=== PATIENT | male | born 1955 | race Caucasian/White ===

== ENCOUNTER 2023-09-27 18:59 | Inpatient (IN) ==
--- NOTE | 2023-09-27 19:22 | Emergency Department Note ---
Impression & Plan Stroke-like symptoms ED Provider Note HISTORY OF PRESENT ILLNESS: Patient is a 68-year-old male presenting with nausea and vomiting. Patient is concerned that he is dehydrated. He reports that last night his was up all night vomiting and having diarrhea and he was helping care for her. He reports that he woke up and has had multiple episodes of nausea and vomiting. Patient is from out of [facility] and normally resides in [place], but is in town helping his daughter and son-in-law move. He was last seen normal and speaking normally at 2 AM. However, went and assessed the patient at 11 AM this morning and found him to have garbled speech and be confused with difficulties with fine motor skills with his right side. She grew concerned given his symptoms and continued vomiting, prompting them to present to the emergency department. He denies any chest pain or shortness of breath. Currently complaining of nausea. Denies any abdominal pain. Patient is not on any anticoagulation or antiplatelet therapy. ROS: as above PHYSICAL EXAM: Constitutional: Patient appears in no acute distress. HENT: Head: Normocephalic and atraumatic. Eyes: EOMI, PERRL Mouth/Throat: Mucous membranes moist. Neck: Trachea midline. Neck supple. Cardiovascular: RRR, No murmurs, rubs or gallops. Intact distal pulses. Pulmonary/Chest: No respiratory distress. Breath sounds clear and equal bilaterally. No wheezes or rales. Abdominal: Abdomen soft, no tenderness, rebound or guarding. Musculoskeletal: No edema, tenderness or deformity noted. Skin: Warm and dry. No rash, erythema, pallor or cyanosis Psychiatric: Appropriate mood and affect for situation. Neurological: Alert and keenly responsive. Noted to have right lower facial droop. Able to raise eyebrows equally well. Significant slurred speech and garbled speech. Strength 5 out of 5 in bilateral upper and lower extremities. Sensation intact to light touch at the bilateral upper and lower extremities. P atient has difficulties with [id number] with the right upper extremity. Noted to have drift in the right upper extremity when held against gravity. Also noting to have drift in the right lower extremity. MDM: - Vitals signs stable. - History obtained via patient and patient's . History as above. - Chronic conditions affecting care: HTN - Differential diagnoses include, but are not limited to: dehydration; electrolyte abnormality; ACS; viral syndrome; CVA; TIA; intracranial hemorrhage - Order placed for continuous cardiac monitoring. At this time, monitor showed rate of 90 bpm with normal sinus rhythm, per my interpretation. - On arrival to examination room from triage, nursing came to alert me that the patient is having some significant this metric with his right upper extremity and slurred speech. On my assessment, the patient does have garbled speech and dysmetria with his right upper extremity and drift in his right upper extremity. He is outside of the window for TNK, given his last known well was 2 AM on 09/27/2023. However, he was stroke alerted given his continued symptoms and within window for thrombectomy. - External medical records reviewed. - EKG interpreted by myself showed normal sinus rhythm. Rate 86 bpm. QT 368. No acute ischemic changes. - Laboratory workup interpreted by myself showed normal WBC; normal PT/INR; stable electrolytes; hyperglycemia (glucose 171); normal troponin - UA negative for infection. Noted to have ketonuria. - Viral respiratory panel negative - CT head wo contrast negative for acute intracranial pathology - CTA head/neck negative for acute pathology, per radiology. - Discussed results with telestroke at [facility], Dr. Alvarez at 20:00. He recommended a aspirin and admission for further stroke workup. Did not recommend starting plavix, given concern for larger stroke. No need for transfer for thrombectomy at this time. - Patient given 325 mg PO aspirin in ER. - MRI brain wo contrast ordered. - Discussion was had with disease case manager about patient's case and need for admission - Hospitalist consulted for admission - [facility] ASSESSMENT AND PLAN: Diagnosis: Stroke-like symptoms Plan: Admit Past Med/Surg History Problem List (Updated 09/27/23 @ 21:41 by Ana Paula oCsby MD) Stroke-like symptoms (Acute) Social History Smoking Status: Never smoker Feels Safe at Home: Yes Allergies Allergies Allergy/AdvReac Type Severity Reaction Status Date / Time No Known Allergies Allergy Verified 09/27/23 21:09 Home Meds Home Medications Medication Instructions Recorded Confirmed allopurinol 100 mg tablet 100 mg PO QAM 09/27/23 09/27/23 cholecalciferol (vitamin D3) 25 25 mcg PO DAILY 09/27/23 09/27/23 mcg (1,000 unit) capsule (Vitamin D3) lisinopril 20 1 tab PO QAM 09/27/23 09/27/23 mg-hydrochlorothiazide 12.5 mg tablet rosuvastatin 20 mg tablet 20 mg PO QAM 09/27/23 09/27/23 Results & Data (ED) Vital Signs Vital Signs - 24 hr 09/27/23 19:05 09/27/23 19:50 09/27/23 19:54 Temperature 36.8 C Temperature Source Temporal Artery Scan Pulse Rate 89 87 Pulse Rate [Apical] 84 Respiratory Rate 18 Respiratory Effort / Characteristics Non-Labored Spontaneous Respiratory Depth Normal Blood Pressure 130/76 Blood Pressure [Right Arm] 163/84 H Blood Pressure Mean 94 Blood Pressure Mean [Right Arm] 110 Pulse Oximetry 97 96 Oxygen Delivery Method Room Air Room Air Sepsis Recent Fever Within 48 Hours No Sepsis New/Unexplained Change in Mental Status N/A Sepsis Action Taken by Nursing No Action Required Laboratory Data 09/27/23 19:25 09/27/23 19:25 Lab Results 09/27/23 09/27/23 09/27/23 Range/Units 19:25 19:49 21:00 WBC 6.08 (4.8-10.8) K/ul RBC 5.23 (4.70-6.10) M/uL Hgb 15.1 (14.0-18.0) g/dl Hct 44.1 (42.0-52.0) % MCV 84.3 (80.0-100.0) fL MCH 28.9 (25.0-34.0) pg MCHC 34.2 (32.0-36.0) g/dL RDW Std Deviation 40.1 (36.4-46.3) fL RDW Coeff of Sohail 13.1 (11.5-14.5) % Plt Count 136 (130-400) K/uL MPV 10.7 (9.4-12.4) fL Immature Gran % (Auto) 0.2 % Neut % (Auto) 87.4 % Lymph % (Auto) 5.3 % [place] % (Auto) 6.6 % Eos % (Auto) 0.3 % Baso % (Auto) 0.2 % Neut # (Auto) 5.32 (1.40-6.50) K/uL Lymph # (Auto) 0.32 L (1.20-3.40) K/uL [place] # (Auto) 0.40 (0.11-0.59) K/uL Eos # (Auto) 0.02 (0.00-0.50) K/uL Baso # (Auto) 0.01 (0.00-0.20) K/uL Immature Gran # (Auto) 0.01 (0.01-0.20) K/uL PT 10.6 (9.0-12.0) Seconds INR 1.0 (0.9-1.1) APTT 25 (21-31) Seconds PTT Ratio 0.9 Sodium 139 (136-145) mmol/L Potassium 3.5 (3.5-5.1) mmol/L Chloride 103 (98-107) mmol/L Carbon Dioxide 28 (21-32) mmol/L Anion Gap 8 (3-11) BUN 25 H (6-23) mg/dl Creatinine 0.81 (0.6-1.4) mg/dl Est Cr Clr Drug Dosing 103.8 ml/min Est GFR ( Amer) 105.8 ml/min Est GFR (Non-Af Amer) 91.3 ml/min BUN/Creatinine Ratio 30.9 H (10-20) Glucose 171 H (70-99(Fasting)) mg/dl POC Glucose 146 H (70-99) mg/dl Lactate 1.6 (0.4-2.0) mmol/L Calcium 9.2 (8.6-10.3) mg/dl Magnesium 1.9 (1.7-2.4) mg/dl Total Bilirubin 1.3 H (0.2-1.0) mg/dl AST 20 (13-39) U/L ALT 24 (7-52) U/L Alkaline Phosphatase 52 (34-104) U/L Troponin I High Sens 5.9 (0-20) pg/ml Total Protein 6.9 (6.0-8.3) gm/dl Albumin 4.6 (3.4-5.0) gm/dl Globulin 2.3 L (2.5-4.0) gm/dl Albumin/Globulin Ratio 2.0 (0.9-2) Urine Color Yellow Urine Appearance Clear (Clear) Urine pH 5.5 (4.5-7.5) Ur Specific [place] > 1.045 H (1.000-1.030) Urine Protein Negative (Negative) Urine Glucose (UA) Negative (Negative) Urine Ketones 1+ H (Negative) Urine Blood Negative (Negative) Urine Nitrite Negative (Negative) Urine Bilirubin Negative (Negative) Urine Urobilinogen Negative (Negative) Ur Leukocyte Esterase Negative (Negative) Adenovirus (PCR) (NotDetected) B. pertussis DNA (PCR) (NotDetected) B.parapertussis DNA PCR (NotDetected) C. pneumoniae DNA (PCR) (NotDetected) Coronavirus OC43 (PCR) (NotDetected) Coronavirus HKU1 (PCR) (NotDetected) Coronavirus 229E (PCR) (NotDetected) SARS-CoV-2 (PCR) (NotDetected) Coronavirus NL63 (PCR) (NotDetected) Human Metapneumovir PCR (NotDetected) Influenza Type A (PCR) (NotDetected) Influenza Type B (PCR) (NotDetected) M. pneumoniae (PCR) (NotDetected) Parainfluenza 1 (PCR) (NotDetected) Parainfluenza 2 (PCR) (NotDetected) Parainfluenza 3 (PCR) (NotDetected) Parainfluenza 4 (PCR) (NotDetected) RSV (PCR) (NotDetected) Entero/Rhino (PCR) (NotDetected) Blood Type O Positive Antibody Screen NEGATIVE 09/27/23 Range/Units Unknown WBC (4.8-10.8) K/ul RBC (4.70-6.10) M/uL Hgb (14.0-18.0) g/dl Hct (42.0-52.0) % MCV (80.0-100.0) fL MCH (25.0-34.0) pg MCHC (32.0-36.0) g/dL RDW Std Deviation (36.4-46.3) fL RDW Coeff of Sohail (11.5-14.5) % Plt Count (130-400) K/uL MPV (9.4-12.4) fL Immature Gran % (Auto) % Neut % (Auto) % Lymph % (Auto) % [place] % (Auto) % Eos % (Auto) % Baso % (Auto) % Neut # (Auto) (1.40-6.50) K/uL Lymph # (Auto) (1.20-3.40) K/uL [place] # (Auto) (0.11-0.59) K/uL Eos # (Auto) (0.00-0.50) K/uL Baso # (Auto) (0.00-0.20) K/uL Immature Gran # (Auto) (0.01-0.20) K/uL PT (9.0-12.0) Seconds INR (0.9-1.1) APTT (21-31) Seconds PTT Ratio Sodium (136-145) mmol/L Potassium (3.5-5.1) mmol/L Chloride (98-107) mmol/L Carbon Dioxide (21-32) mmol/L Anion Gap (3-11) BUN (6-23) mg/dl Creatinine (0.6-1.4) mg/dl Est Cr Clr Drug Dosing ml/min Est GFR ( Amer) ml/min Est GFR (Non-Af Amer) ml/min BUN/Creatinine Ratio (10-20) Glucose (70-99(Fasting)) mg/dl POC Glucose (70-99) mg/dl Lactate (0.4-2.0) mmol/L Calcium (8.6-10.3) mg/dl Magnesium (1.7-2.4) mg/dl Total Bilirubin (0.2-1.0) mg/dl AST (13-39) U/L ALT (7-52) U/L Alkaline Phosphatase (34-104) U/L Troponin I High Sens (0-20) pg/ml Total Protein (6.0-8.3) gm/dl Albumin (3.4-5.0) gm/dl Globulin (2.5-4.0) gm/dl Albumin/Globulin Ratio (0.9-2) Urine Color Urine Appearance (Clear) Urine pH (4.5-7.5) Ur Specific [place] (1.000-1.030) Urine Protein (Negative) Urine Glucose (UA) (Negative) Urine Ketones (Negative) Urine Blood (Negative) Urine Nitrite (Negative) Urine Bilirubin (Negative) Urine Urobilinogen (Negative) Ur Leukocyte Esterase (Negative) Adenovirus (PCR) Not Detected (NotDetected) B. pertussis DNA (PCR) Not Detected (NotDetected) B.parapertussis DNA PCR Not Detected (NotDetected) C. pneumoniae DNA (PCR) Not Detected (NotDetected) Coronavirus OC43 (PCR) Not Detected (NotDetected) Coronavirus HKU1 (PCR) Not Detected (NotDetected) Coronavirus 229E (PCR) Not Detected (NotDetected) SARS-CoV-2 (PCR) Not Detected (NotDetected) Coronavirus NL63 (PCR) Not Detected (NotDetected) Human Metapneumovir PCR Not Detected (NotDetected) Influenza Type A (PCR) Not Detected (NotDetected) Influenza Type B (PCR) Not Detected (NotDetected) M. pneumoniae (PCR) Not Detected (NotDetected) Parainfluenza 1 (PCR) Not Detected (NotDetected) Parainfluenza 2 (PCR) Not Detected (NotDetected) Parainfluenza 3 (PCR) Not Detected (NotDetected) Parainfluenza 4 (PCR) Not Detected (NotDetected) RSV (PCR) Not Detected (NotDetected) Entero/Rhino (PCR) Not Detected (NotDetected) Blood Type Antibody Screen Administered Medications Discontinued Medications Aspirin (Aspirin Chew 324 Mg) 324 mg PO NOW STA Stop: 09/27/23 20:22 Last Admin: 09/27/23 20:33 Dose: 324 mg Documented By: CELESTINA Sodium Chloride (Nss) 1,000 mls @ 999 mls/hr IV .Q1H1M ONE Stop: 09/27/23 20:21 Last Infusion: 09/27/23 20:46 Dose: Infused Documented By: Admin: 09/27/23 19:52 Dose: 999 mls/hr Documented By: CELESTINA Ioversol (Optiray 320 125ml) 120 ml IV ONCE ONE Stop: 09/27/23 19:40 Last Admin: 09/27/23 19:40 Dose: 120 ml Documented By: KAMALA Ondansetron HCl (Ondansetron Inj 2 Mg/Ml 2 Ml Vial) 4 mg IV NOW STA Stop: 09/27/23 19:22 Last Admin: 09/27/23 19:26 Dose: 4 mg Documented By: CELESTINA Ondansetron HCl (Ondansetron Inj 2 Mg/Ml 2 Ml Vial) Confirm Administered Dose 4 mg .ROUTE .STK-MED ONE Stop: 09/27/23 19:23 Last Admin: 09/27/23 19:27 Dose: Not Given Documented By: CELESTINA Imaging Data Radiologist's Impression: Head CT 09/27/23 19:21 CT angio head w con, CT head/brain wo con, CT angio neck with con CLINICAL HISTORY: neuro deficit, acute stroke suspected TECHNIQUE: Contiguous axial CT images of the head were acquired from the base of the skull to the vertex without intravenous contrast administration. CT angiography of the head and neck was performed following intravenous administration of iodinated contrast. Coronal and sagittal MIPS were obtained from the axial data set and were submitted for review. Automated dose lowering techniques and/or adjustment according to patient size were utilized for this examination. All measurements were calculated based on NASCET criteria. CT DOSE: 1292.42 mGy.cm Comparison: None available at the time of this dictation. FINDINGS: CT head: There is no acute intracranial hemorrhage or evidence of acute territorial infarction. No shift of the midline structures, mass effect, or extra-axial abnormalities are shown. Lungs and soft tissues are unremarkable. CTA Neck: A 3 vessel aortic arch is shown. There is no significant atherosclerotic plaque in the aortic arch or the origins of the innominate, left common carotid, and left subclavian arteries. The common carotid, external carotid, cervical segments of the internal carotid arteries, and the cervical segments of the vertebral arteries are patent without hemodynamically significant stenosis. The vertebral arteries are codominant. CTA Head: The anterior and posterior cerebral circulations are patent. origin of the left posterior cerebral artery is seen. IMPRESSION: 1. No acute intracranial hemorrhage, evidence of acute territorial infarction, or other acute intracranial disease process. 2. No occlusion, hemodynamically significant stenosis, or dissection in the major cervical arteries. 3. No occlusion, hemodynamically significant stenosis, aneurysm, dissection, or arteriovenous malformation in the major intracranial arteries. Assessment of stenosis of the internal carotid arteries is based on NASCET criteria. ACT 112: Negative or not required by law. Electronically signed by: Lonnie Cat M.D. 09/27/2023 8:28 PM Head CTA 09/27/23 19:21 CT angio head w con, CT head/brain wo con, CT angio neck with con CLINICAL HISTORY: neuro deficit, acute stroke suspected TECHNIQUE: Contiguous axial CT images of the head were acquired from the base of the skull to the vertex without intravenous contrast administration. CT angiography of the head and neck was performed following intravenous administration of iodinated contrast. Coronal and sagittal MIPS were obtained from the axial data set and were submitted for review. Automated dose lowering techniques and/or adjustment according to patient size were utilized for this examination. All measurements were calculated based on NASCET criteria. CT DOSE: 1292.42 mGy.cm Comparison: None available at the time of this dictation. FINDINGS: CT head: There is no acute intracranial hemorrhage or evidence of acute territorial infarction. No shift of the midline structures, mass effect, or extra-axial abnormalities are shown. Lungs and soft tissues are unremarkable. CTA Neck: A 3 vessel aortic arch is shown. There is no significant atherosclerotic plaque in the aortic arch or the origins of the innominate, left common carotid, and left subclavian arteries. The common carotid, external carotid, cervical segments of the internal carotid arteries, and the cervical segments of the vertebral arteries are patent without hemodynamically significant stenosis. The vertebral arteries are codominant. CTA Head: The anterior and posterior cerebral circulations are patent. origin of the left posterior cerebral artery is seen. IMPRESSION: 1. No acute intracranial hemorrhage, evidence of acute territorial infarction, or other acute intracranial disease process. 2. No occlusion, hemodynamically significant stenosis, or dissection in the major cervical arteries. 3. No occlusion, hemodynamically significant stenosis, aneurysm, dissection, or arteriovenous malformation in the major intracranial arteries. Assessment of stenosis of the internal carotid arteries is based on NASCET criteria. ACT 112: Negative or not required by law. Electronically signed by: Lonnie Cat M.D. 09/27/2023 8:28 PM Neck CTA 09/27/23 19:21 CT angio head w con, CT head/brain wo con, CT angio neck with con CLINICAL HISTORY: neuro deficit, acute stroke suspected TECHNIQUE: Contiguous axial CT images of the head were acquired from the base of the skull to the vertex without intravenous contrast administration. CT angiography of the head and neck was performed following intravenous administration of iodinated contrast. Coronal and sagittal MIPS were obtained from the axial data set and were submitted for review. Automated dose lowering techniques and/or adjustment according to patient size were utilized for this examination. All measurements were calculated based on NASCET criteria. CT DOSE: 1292.42 mGy.cm Comparison: None available at the time of this dictation. FINDINGS: CT head: There is no acute intracranial hemorrhage or evidence of acute territorial infarction. No shift of the midline structures, mass effect, or extra-axial abnormalities are shown. Lungs and soft tissues are unremarkable. CTA Neck: A 3 vessel aortic arch is shown. There is no significant atherosclerotic plaque in the aortic arch or the origins of the innominate, left common carotid, and left subclavian arteries. The common carotid, external carotid, cervical segments of the internal carotid arteries, and the cervical segments of the vertebral arteries are patent without hemodynamically significant stenosis. The vertebral arteries are codominant. CTA Head: The anterior and posterior cerebral circulations are patent. origin of the left posterior cerebral artery is seen. IMPRESSION: 1. No acute intracranial hemorrhage, evidence of acute territorial infarction, or other acute intracranial disease process. 2. No occlusion, hemodynamically significant stenosis, or dissection in the major cervical arteries. 3. No occlusion, hemodynamically significant stenosis, aneurysm, dissection, or arteriovenous malformation in the major intracranial arteries. Assessment of stenosis of the internal carotid arteries is based on NASCET criteria. ACT 112: Negative or not required by law. Electronically signed by: Lonnie Cat M.D. 09/27/2023 8:28 PM Discharge Plan Visit Data Chief Complaint: Dehydration Stated Complaint: SLURRED SPEECH, UNBALANCED, VOMITING, DIARRHEA ED Provider: Ana Paula Cosby Discharge Problem: Stroke-like symptoms Forms Stand Alone Forms: [employer] Prescriptions Prescriptions: No Action lisinopril-hydrochlorothiazide 20-12.5 mg tablet 1 tab PO QAM allopurinol 100 mg tablet 100 mg PO QAM cholecalciferol (vitamin D3) [Vitamin D3] 25 mcg (1,000 unit) Capsule 25 mcg PO DAILY rosuvastatin 20 mg tablet 20 mg PO QAM Referrals Referrals: PCP,NO [Primary Care Provider] -
[2023-09-27] MEDS: ONDANSETRON INJ 2 MG/ML 2 ML VIAL IV STA (19:26)
[2023-09-27] MEDS: ONDANSETRON INJ 2 MG/ML 2 ML VIAL ONE (19:27)
[2023-09-27] MEDS: OPTIRAY 320 125ml IV ONE (19:40)
[2023-09-27 19:43] LABS: Basophils # (auto) 0.01 K/uL (0.00-0.20); Basophils % (auto) 0.2 %; Eosinophils # (auto) 0.02 K/uL (0.00-0.50); Eosinophils % (auto) 0.3 %; Hematocrit (blood only) 44.1 % (42.0-52.0); Hemoglobin 15.1 g/dl (14.0-18.0); Immature Granulocytes # (auto) 0.01 K/uL (0.01-0.20); Immature Granulocytes % (auto) 0.2 %; Lymphocytes # (auto) 0.32 K/uL (1.20-3.40); Lymphocytes % (auto) 5.3 %; Mean Corpuscular Hemoglobin 28.9 pg (25.0-34.0); Mean Corpuscular Hgb Conc 34.2 g/dL (32.0-36.0); Mean Corpuscular Volume 84.3 fL (80.0-100.0); Mean Platelet Volume 10.7 fL (9.4-12.4); Monocytes % (auto) 6.6 %; Neutrophils # (auto) 5.32 K/uL (1.40-6.50); Neutrophils % (auto) 87.4 %; Platelet Count 136 K/uL (130-400); RDW Coefficient of Variation 13.1 % (11.5-14.5); RDW Standard Deviation 40.1 fL (36.4-46.3); Red Blood Count 5.23 M/uL (4.70-6.10); White Blood Count 6.08 K/ul (4.8-10.8)
[2023-09-27] MEDS: SODIUM CHLORIDE 0.9% 1,000 ML IV ONE (19:52)
[2023-09-27 20:00] LABS: Albumin Level 4.6 gm/dl (3.4-5.0); BUN Creatinine Ratio 30.9 (10-20); Bilirubin,Total 1.3 mg/dl (0.2-1.0); Calcium 9.2 mg/dl (8.6-10.3); Creatinine Clr Calc Pharmacy 103.8 ml/min; Est GFR (African American) 105.8 ml/min; Est GFR (Non-African American) 91.3 ml/min; Globulin 2.3 gm/dl (2.5-4.0); Magnesium 1.9 mg/dl (1.7-2.4); Potassium 3.5 mmol/L (3.5-5.1); Total Protein 6.9 gm/dl (6.0-8.3)
[2023-09-27 20:07] LABS: Troponin I High Sensitivity 5.9 pg/ml (0-20)
[2023-09-27 20:09] LABS: Partial Thromboplastin Ratio 0.9; Partial Thromboplastin Time 25 Seconds (21-31); Prothrombin Time 10.6 Seconds (9.0-12.0)
--- NOTE | 2023-09-27 20:30 | CT Scan Report ---
CT angio head w con, CT head/brain wo con, CT angio neck with con CLINICAL HISTORY: neuro deficit, acute stroke suspected TECHNIQUE: Contiguous axial CT images of the head were acquired from the base of the skull to the zina terence without intravenous contrast administration. CT angiography of the head and neck was performed f ollowing intravenous administration of iodinated contrast. Coronal and sagittal MIPS were obtained fr om the axial data set and were submitted for review. Automated dose lowering techniques and/or adjus tment according to patient size were utilized for this examination. All measurements were calculated based on NASCET criteria. CT DOSE: 1292.42 mGy.cm Comparison: None available at the time of this dictation. FINDINGS: CT head: There is no acute intracranial hemorrhage or evidence of acute territorial infarction. No sh ift of the midline structures, mass effect, or extra-axial abnormalities are shown. Lungs and soft tissues are unremarkable. CTA Neck: A 3 vessel aortic arch is shown. There is no significant atherosclerotic plaque in the aor tic arch or the origins of the innominate, left common carotid, and left subclavian arteries. The co mmon carotid, external carotid, cervical segments of the internal carotid arteries, and the cervical segments of the vertebral arteries are patent without hemodynamically significant stenosis. The verte bral arteries are codominant. CTA Head: The anterior and posterior cerebral circulations are patent. origin of the left post erior cerebral artery is seen. IMPRESSION: 1. No acute intracranial hemorrhage, evidence of acute territorial infarction, or other acute intrac ranial disease process. 2. No occlusion, hemodynamically significant stenosis, or dissection in the major cervical arteries. 3. No occlusion, hemodynamically significant stenosis, aneurysm, dissection, or arteriovenous malfor mation in the major intracranial arteries. Assessment of stenosis of the internal carotid arteries is based on NASCET criteria. ACT 112: Negative or not required by law. Electronically signed by: Lonnie Cat M.D. 09/27/2023 8:28 PM
[2023-09-27] MEDS: ASPIRIN CHEW 324 MG PO STA (20:33)
[2023-09-27 21:02] LABS: Adenovirus PCR Not Detected (NotDetected); Bordetella parapertussis PCR Not Detected (NotDetected); Bordetella pertussis PCR Not Detected (NotDetected); Chlamydia pneumoniae PCR Not Detected (NotDetected); Coronavirus 229E PCR Not Detected (NotDetected); Coronavirus CoV-2 (COVID19)PCR Not Detected (NotDetected); Coronavirus HKU1 PCR Not Detected (NotDetected); Coronavirus NL63 PCR Not Detected (NotDetected); Coronavirus OC43PCR Not Detected (NotDetected); Human Metapneumovirus PCR Not Detected (NotDetected); Influenza A PCR Not Detected (NotDetected); Influenza B PCR Not Detected (NotDetected); Mycoplasma pneumoniae PCR Not Detected (NotDetected); Parainfluenza Virus 1 PCR Not Detected (NotDetected); Parainfluenza Virus 2 PCR Not Detected (NotDetected); Parainfluenza Virus 3 PCR Not Detected (NotDetected); Parainfluenza Virus 4 PCR Not Detected (NotDetected); Respiratory Syncytial VirusPCR Not Detected (NotDetected); Rhinovirus/Enterovirus PCR Not Detected (NotDetected)
[2023-09-27 21:17] LABS: Appearance Urine Clear (Clear); Bilirubin Urine Negative (Negative); Blood Urine Negative (Negative); Color Urine Yellow; Glucose Urine UA Negative (Negative); Ketones Urine 1+ (Negative); Leukocyte Esterase Urine Negative (Negative); Nitrite Urine Negative (Negative); Protein Urine Negative (Negative); Specific Gravity Urine > 1.045 (1.000-1.030); Urobilinogen Urine Negative (Negative); pH Urine 5.5 (4.5-7.5)
--- NOTE | 2023-09-27 22:21 | History & Physical Report ---
Date of Service September 27, 2023 Assessment & Plan (1) Acute CVA (cerebrovascular accident): Plan: Acute ischemic CVA hypertension, stable hyperlipidemia, on statin Rx Hyperglycemia rule out DM Medical telemetry Neurochecks Dual antiplatelet therapy, statin Rx Neurology consult Re: Acute CVA Update lipid profile Check hemoglobin A1c DVT prophylaxis per Lovenox subcu Full code Text document was generated using [employer] voice recognition software. It may contain grammatical or spelling errors. Kindly contact undersigned for clarification of any documentation item in question. History of Present Illness Chief Complaint: Garbled speech Primary Care Provider: Dr. Cesar from [place], [place] History obtained from patient, family, and records. Patient is a resident of [place], [place] who arrived in town last week to help family relocate. Medical history significant for hypertension, hyperlipidemia, gout. Patient and contracted transient diarrheal illness associated with nausea, vomiting symptoms upon arrival last weekend. Sick family members. Symptoms currently improving. This morning, patient noted by to have garbled speech and not talking as allowed. Patient felt dizzy and imbalanced while walking. No headache symptoms. No chest pain, no SOB. No arm or leg weakness. No previous episodes. Patient given aspirin upon arrival at the ER. Symptoms currently improving. 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 Allergies Allergy/AdvReac Type Severity Reaction Status Date / Time No Known Allergies Allergy Verified 09/27/23 21:09 Home Medications Medication Instructions Recorded Confirmed Type allopurinol 100 mg tablet 100 mg PO QAM 09/27/23 09/27/23 History cholecalciferol (vitamin D3) 25 25 mcg PO DAILY 09/27/23 09/27/23 History mcg (1,000 unit) capsule (Vitamin D3) lisinopril 20 1 tab PO QAM 09/27/23 09/27/23 History mg-hydrochlorothiazide 12.5 mg tablet rosuvastatin 20 mg tablet 20 mg PO QAM 09/27/23 09/27/23 History Past Med/Surg History Problem List (Updated 09/28/23 @ 03:30 by Cali Guevara MD) Acute CVA (cerebrovascular accident) Stroke-like symptoms (Acute) Social History Smoking Status: Never smoker Hx Alcohol Use: Yes Alcohol type: beer Hx Substance Use: No Preferred Language: Latvian Communication Ability: Effective Food And Beverage Server Required: No Beliefs That Will Affect Care: None Current Living Situation: Spouse Current Living Situation Comment: Own home, 2 steps to enter house, first floor master bedroom Other Information That Helps Us Care for You: No Feels Safe at Home: Yes Safety Concerns: Feels Safe At This Time Assistive Devices: CPAP Review of Systems Review of Systems: As per HPI, all other systems reviewed and negative Physical Exam Physical Exam: GENERAL: Comfortable, pleasant, dysarthric, no respiratory distress SKIN: Normal color, warm HEENT: [place] palpebral conjunctivae, no ptosis, dry buccal mucosa NECK : Supple, no tenderness CHEST : CTA, no tenderness HEART : RRR, no obvious murmurs ABDOMEN: Some distention, nontender EXTREMITIES : No LE swelling/tenderness, no other conspicuous deformities noted NEUROLOGIC : Coherent, no facial asymmetry, dysarthric, MMTs BUE/BLE 5/5 Results & Data Results & Data Vital Signs (Past 12 Hours) Vital Signs Temp Pulse Pulse Resp BP BP Pulse Ox 09/27/23 19:54 84 163/84 H 96 09/27/23 19:50 87 09/27/23 19:05 36.8 C 89 18 130/76 97 O2 Del Method 09/27/23 19:54 Room Air 09/27/23 19:50 09/27/23 19:05 Room Air Laboratory Results Laboratory Results WBC 6.08 K/ul (4.8-10.8) 09/27/23 19:25 RBC 5.23 M/uL (4.70-6.10) 09/27/23 19:25 Hgb 15.1 g/dl (14.0-18.0) 09/27/23 19:25 Hct 44.1 % (42.0-52.0) 09/27/23 19:25 MCV 84.3 fL (80.0-100.0) 09/27/23 19:25 MCH 28.9 pg (25.0-34.0) 09/27/23 19:25 MCHC 34.2 g/dL (32.0-36.0) 09/27/23 19:25 RDW Std Deviation 40.1 fL (36.4-46.3) 09/27/23 19:25 RDW Coeff of Sohail 13.1 % (11.5-14.5) 09/27/23 19:25 Plt Count 136 K/uL (130-400) 09/27/23 19:25 MPV 10.7 fL (9.4-12.4) 09/27/23 19:25 Immature Gran % (Auto) 0.2 % 09/27/23 19:25 Neut % (Auto) 87.4 % 09/27/23 19:25 Lymph % (Auto) 5.3 % 09/27/23 19:25 Bledsoe % (Auto) 6.6 % 09/27/23 19:25 Eos % (Auto) 0.3 % 09/27/23 19:25 Baso % (Auto) 0.2 % 09/27/23 19:25 Neut # (Auto) 5.32 K/uL (1.40-6.50) 09/27/23 19: Lymph # (Auto) 0.32 K/uL (1.20-3.40) L 09/27/23 19:25 Bledsoe # (Auto) 0.40 K/uL (0.11-0.59) 09/27/23 19:25 Eos # (Auto) 0.02 K/uL (0.00-0.50) 09/27/23 19:25 Baso # (Auto) 0.01 K/uL (0.00-0.20) 09/27/23 19:25 Immature Gran # (Auto) 0.01 K/uL (0.01-0.20) 09/27/23 19:25 PT 10.6 Seconds (9.0-12.0) 09/27/23 19:25 INR 1.0 (0.9-1.1) 09/27/23 19:25 APTT 25 Seconds (21-31) 09/27/23 19:25 PTT Ratio 0.9 09/27/23 19:25 Sodium 139 mmol/L (136-145) 09/27/23 19:25 Potassium 3.5 mmol/L (3.5-5.1) 09/27/23 19:25 Chloride 103 mmol/L (98-107) 09/27/23 19:25 Carbon Dioxide 28 mmol/L (21-32) 09/27/23 19:25 Anion Gap 8 (3-11) 09/27/23 19:25 BUN 25 mg/dl (6-23) H 09/27/23 19:25 Creatinine 0.81 mg/dl (0.6-1.4) 09/27/23 19:25 Est Cr Clr Drug Dosing 103.8 ml/min 09/27/23 19:25 Est GFR ( Amer) 105.8 ml/min 09/27/23 19:25 Est GFR (Non-Af Amer) 91.3 ml/min 09/27/23 19:25 BUN/Creatinine Ratio 30.9 (10-20) H 09/27/23 19:25 Glucose 171 mg/dl (70-99(Fasting)) H 09/27/23 19:25 POC Glucose 146 mg/dl (70-99) H 09/27/23 19:49 Lactate 1.6 mmol/L (0.4-2.0) 09/27/23 19:25 Calcium 9.2 mg/dl (8.6-10.3) 09/27/23 19:25 Magnesium 1.9 mg/dl (1.7-2.4) 09/27/23 19:25 Total Bilirubin 1.3 mg/dl (0.2-1.0) H 09/27/23 19:25 AST 20 U/L (13-39) 09/27/23 19:25 ALT 24 U/L (7-52) 09/27/23 19:25 Alkaline Phosphatase 52 U/L (34-104) 09/27/23 19:25 Troponin I High Sens 5.9 pg/ml (0-20) 09/27/23 19:25 Total Protein 6.9 gm/dl (6.0-8.3) 09/27/23 19:25 Albumin 4.6 gm/dl (3.4-5.0) 09/27/23 19:25 Globulin 2.3 gm/dl (2.5-4.0) L 09/27/23 19:25 Albumin/Globulin Ratio 2.0 (0.9-2) 09/27/23 19:25 Urine Color Yellow 09/27/23 21:00 Urine Appearance Clear (Clear) 09/27/23 21:00 Urine pH 5.5 (4.5-7.5) 09/27/23 21:00 Ur Specific [place] > 1.045 (1.000-1.030) H 09/27/23 21:00 Urine Protein Negative (Negative) 09/27/23 21:00 Urine Glucose (UA) Negative (Negative) 09/27/23 21:00 Urine Ketones 1+ (Negative) H 09/27/23 21:00 Urine Blood Negative (Negative) 09/27/23 21:00 Urine Nitrite Negative (Negative) 09/27/23 21:00 Urine Bilirubin Negative (Negative) 09/27/23 21:00 Urine Urobilinogen Negative (Negative) 09/27/23 21:00 Ur Leukocyte Esterase Negative (Negative) 09/27/23 21:00 Adenovirus (PCR) Not Detected (NotDetected) 09/27/23 Unknown B. pertussis DNA (PCR) Not Detected (NotDetected) 09/27/23 Unknown B.parapertussis DNA PCR Not Detected (NotDetected) 09/27/23 Unknown C. pneumoniae DNA (PCR) Not Detected (NotDetected) 09/27/23 Unknown Coronavirus OC43 (PCR) Not Detected (NotDetected) 09/27/23 Unknown Coronavirus HKU1 (PCR) Not Detected (NotDetected) 09/27/23 Unknown Coronavirus 229E (PCR) Not Detected (NotDetected) 09/27/23 Unknown SARS-CoV-2 (PCR) Not Detected (NotDetected) 09/27/23 Unknown Coronavirus NL63 (PCR) Not Detected (NotDetected) 09/27/23 Unknown Human Metapneumovir PCR Not Detected (NotDetected) 09/27/23 Unknown Influenza Type A (PCR) Not Detected (NotDetected) 09/27/23 Unknown Influenza Type B (PCR) Not Detected (NotDetected) 09/27/23 Unknown M. pneumoniae (PCR) Not Detected (NotDetected) 09/27/23 Unknown Parainfluenza 1 (PCR) Not Detected (NotDetected) 09/27/23 Unknown Parainfluenza 2 (PCR) Not Detected (NotDetected) 09/27/23 Unknown Parainfluenza 3 (PCR) Not Detected (NotDetected) 09/27/23 Unknown Parainfluenza 4 (PCR) Not Detected (NotDetected) 09/27/23 Unknown RSV (PCR) Not Detected (NotDetected) 09/27/23 Unknown Entero/Rhino (PCR) Not Detected (NotDetected) 09/27/23 Unknown Blood Type O Positive 09/27/23 19:25 Antibody Screen NEGATIVE 09/27/23 19:[address] 09/27/23 19:21 CT angio head w con, CT head/brain wo con, CT angio neck with con CLINICAL HISTORY: neuro deficit, acute stroke suspected TECHNIQUE: Contiguous axial CT images of the head were acquired from the base of the skull to the vertex without intravenous contrast administration. CT angiography of the head and neck was performed following intravenous administration of iodinated contrast. Coronal and sagittal MIPS were obtained from the axial data set and were submitted for review. Automated dose lowering techniques and/or adjustment according to patient size were utilized for this examination. All measurements were calculated based on NASCET criteria. CT DOSE: 1292.42 mGy.cm Comparison: None available at the time of this dictation. FINDINGS: CT head: There is no acute intracranial hemorrhage or evidence of acute territorial infarction. No shift of the midline structures, mass effect, or extra-axial abnormalities are shown. Lungs and soft tissues are unremarkable. CTA Neck: A 3 vessel aortic arch is shown. There is no significant atherosclerotic plaque in the aortic arch or the origins of the innominate, left common carotid, and left subclavian arteries. The common carotid, external carotid, cervical segments of the internal carotid arteries, and the cervical segments of the vertebral arteries are patent without hemodynamically significa nt stenosis. The vertebral arteries are codominant. CTA Head: The anterior and posterior cerebral circulations are patent. origin of the left posterior cerebral artery is seen. IMPRESSION: 1. No acute intracranial hemorrhage, evidence of acute territorial infarction, or other acute intracranial disease process. 2. No occlusion, hemodynamically significant stenosis, or dissection in the major cervical arteries. 3. No occlusion, hemodynamically significant stenosis, aneurysm, dissection, or arteriovenous malformation in the major intracranial arteries. Assessment of stenosis of the internal carotid arteries is based on NASCET criteria. ACT 112: Negative or not required by law. Electronically signed by: Lonnie Cat M.D. 09/27/2023 8:28 PM Head CTA 09/27/23 19:21 CT angio head w con, CT head/brain wo con, CT angio neck with con CLINICAL HISTORY: neuro deficit, acute stroke suspected TECHNIQUE: Contiguous axial CT images of the head were acquired from the base of the skull to the vertex without intravenous contrast administration. CT angiography of the head and neck was performed following intravenous administration of iodinated contrast. Coronal and sagittal MIPS were obtained from the axial data set and were submitted for review. Automated dose lowering techniques and/or adjustment according to patient size were utilized for this examination. All measurements were calculated based on NASCET criteria. CT DOSE: 1292.42 mGy.cm Comparison: None available at the time of this dictation. FINDINGS: CT head: There is no acute intracranial hemorrhage or evidence of acute territorial infarction. No shift of the midline structures, mass effect, or extra-axial abnormalities are shown. Lungs and soft tissues are unremarkable. CTA Neck: A 3 vessel aortic arch is shown. There is no significant atherosclerotic plaque in the aortic arch or the origins of the innominate, left common carotid, and left subclavian arteries. The common carotid, external carotid, cervical segments of the internal carotid arteries, and the cervical segments of the vertebral arteries are patent without hemodynamically significan t stenosis. The vertebral arteries are codominant. CTA Head: The anterior and posterior cerebral circulations are patent. origin of the left posterior cerebral artery is seen. IMPRESSION: 1. No acute intracranial hemorrhage, evidence of acute territorial infarction, or other acute intracranial disease process. 2. No occlusion, hemodynamically significant stenosis, or dissection in the major cervical arteries. 3. No occlusion, hemodynamically significant stenosis, aneurysm, dissection, or arteriovenous malformation in the major intracranial arteries. Assessment of stenosis of the internal carotid arteries is based on NASCET criteria. ACT 112: Negative or not required by law. Electronically signed by: Lonnie Cat M.D. 09/27/2023 8:28 PM Neck CTA 09/27/23 19:21 CT angio head w con, CT head/brain wo con, CT angio neck with con CLINICAL HISTORY: neuro deficit, acute stroke suspected TECHNIQUE: Contiguous axial CT images of the head were acquired from the base of the skull to the vertex without intravenous contrast administration. CT angiography of the head and neck was performed following intravenous administration of iodinated contrast. Coronal and sagittal MIPS were obtained from the axial data set and were submitted for review. Automated dose lowering techniques and/or adjustment according to patient size were utilized for this examination. All measurements were calculated based on NASCET criteria. CT DOSE: 1292.42 mGy.cm Comparison: None available at the time of this dictation. FINDINGS: CT head: There is no acute intracranial hemorrhage or evidence of acute territorial infarction. No shift of the midline structures, mass effect, or extra-axial abnormalities are shown. Lungs and soft tissues are unremarkable. CTA Neck: A 3 vessel aortic arch is shown. There is no significant atherosclerotic plaque in the aortic arch or the origins of the innominate, left common carotid, and left subclavian arteries. The common carotid, external carotid, cervical segments of the internal carotid arteries, and the cervical segments of the vertebral arteries are patent without hemodynamically significant stenosis. The vertebral arteries are codominant. CTA Head: The anterior and posterior cerebral circulations are patent. origin of the left posterior cerebral artery is seen. IMPRESSION: 1. No acute intracranial hemorrhage, evidence of acute territorial infarction, or other acute intracranial disease process. 2. No occlusion, hemodynamically significant stenosis, or dissection in the major cervical arteries. 3. No occlusion, hemodynamically significant stenosis, aneurysm, dissection, or arteriovenous malformation in the major intracranial arteries. Assessment of stenosis of the internal carotid arteries is based on NASCET criteria. ACT 112: Negative or not required by law. Electronically signed by: Lonnie Cat M.D. 09/27/2023 8:28 PM Brain MRI: Acute ischemic injury within the left marlys without evidence of hemorrhagic transformation. Diagnostic Findings EKG as per my interpretation : Rate 85, NSR, normal axis, septal infarct, T wave flattening inferior leads,
[2023-09-27] MEDS ORDERED: PHARMACIST DISCHARGE MED REC CONSULT PRN (22:24)
[2023-09-27] MEDS ORDERED: ACETAMINOPHEN 325 MG TAB PO PRN (22:28)
[2023-09-27] MEDS ORDERED: PROMETHAZINE HCL 6.25 MG in SODIUM CHLORIDE 0.9% 50 ML IV PRN (22:28)
[2023-09-27] MEDS ORDERED: LORazepam 0.5 MG TAB PO PRN (22:28)
[2023-09-27 22:39] LABS: Estimated Average Glucose 97 mg/dl
--- NOTE | 2023-09-27 23:13 | Magnetic Resonance Report ---
Exam(s): MRI HEAD Without Contrast EXAM: MR Head Without Intravenous Contrast CLINICAL HISTORY: Reason for exam: slurred speech; RUE deficits. TECHNIQUE: Magnetic resonance images of the head/brain without intravenous contrast in multiple planes. COMPARISON: Comparison made to prior head CT from September 27, 2023. FINDINGS: Brain: There is acute ischemic injury of the left marlys with moderate to severe toxic edema without evidence of hemorrhagic transformation. Mild nonspecific white matter changes. No mass. No hemorrhage. The flow voids at the base of the brain are intact. Ventricles: Mild ventriculomegaly. Bones/joints: Unremarkable. No acute fracture. Sinuses: Unremarkable as visualized. No acute sinusitis. Mastoid air cells: Unremarkable as visualized. No mastoid effusion. Orbits: Unremarkable as visualized. IMPRESSION: Acute ischemic injury within the left marlys without evidence of hemorrhagic transformation. Communications: Verify Receipt Electronically signed by: Smita Huitron MD 09/27/23 23:12 PM
[2023-09-27] MEDS: MAGNESIUM SULFATE / D5W 1 GM/100 ML BAG IV ONE (23:23)
[2023-09-27] MEDS: NSS + 20MEQ KCL 20 MEQ/1,000 ML BAG IV ONE (23:24)
[2023-09-27] MEDS: POTASSIUM CHLORIDE PWD 20 MEQ PACK PO STA (23:24)
[2023-09-27] MEDS: CLOPIDOGREL BISULFATE 75 MG TAB PO ONE (23:59)
[2023-09-28 04:23] LABS: BUN Creatinine Ratio 31.7 (10-20); Calcium 7.9 mg/dl (8.6-10.3); Chol HDL Ratio 2.5 (0-5); Creatinine Clr Calc Pharmacy 133.5 ml/min; Est GFR (African American) 117.4 ml/min; Est GFR (Non-African American) 101.3 ml/min; Potassium 3.5 mmol/L (3.5-5.1)
[2023-09-28 04:30] LABS: Basophils # (auto) 0.01 K/uL (0.00-0.20); Basophils % (auto) 0.2 %; Eosinophils # (auto) 0.03 K/uL (0.00-0.50); Eosinophils % (auto) 0.6 %; Hematocrit (blood only) 38.5 % (42.0-52.0); Hemoglobin 13.4 g/dl (14.0-18.0); Immature Granulocytes # (auto) 0.02 K/uL (0.01-0.20); Immature Granulocytes % (auto) 0.4 %; Lymphocytes # (auto) 0.38 K/uL (1.20-3.40); Lymphocytes % (auto) 7.7 %; Mean Corpuscular Hemoglobin 29.5 pg (25.0-34.0); Mean Corpuscular Hgb Conc 34.8 g/dL (32.0-36.0); Mean Corpuscular Volume 84.6 fL (80.0-100.0); Mean Platelet Volume 10.5 fL (9.4-12.4); Monocytes # (auto) 0.52 K/uL (0.11-0.59); Monocytes % (auto) 10.5 %; Neutrophils # (auto) 3.97 K/uL (1.40-6.50); Neutrophils % (auto) 80.6 %; Platelet Count 123 K/uL (130-400); RDW Coefficient of Variation 13.2 % (11.5-14.5); RDW Standard Deviation 40.5 fL (36.4-46.3); Red Blood Count 4.55 M/uL (4.70-6.10); White Blood Count 4.93 K/ul (4.8-10.8)
[2023-09-28] MEDS ORDERED: ENOXAPARIN INJ 40 MG/0.4 ML SYR SQ SCH (09:00)
[2023-09-28] MEDS ORDERED: ROSUVASTATIN CALCIUM 20 MG TAB PO SCH (09:00)
[2023-09-28] MEDS: ASPIRIN 81 MG ECTAB PO SCH (09:09)
[2023-09-28] MEDS: allopurinoL 100 MG TAB PO SCH (09:09)
[2023-09-28] MEDS: CHOLECALCIFEROL 25 MCG (1000 UNITS) TAB PO SCH (09:09)
[2023-09-28] MEDS: ROSUVASTATIN CALCIUM 20 MG TAB PO SCH (09:10)
[2023-09-28] MEDS: ENOXAPARIN INJ 40 MG/0.4 ML SYR SQ SCH (09:12)
--- NOTE | 2023-09-28 11:51 | Neurology Consultation ---
Date of Consultation September 28, 2023 Assessment & Plan (1) Acute CVA (cerebrovascular accident): Recommend continued stroke work up to include the following: Echocardiogram as part of complete stroke workup Continue frequent neurological assessments Obtain stat CT brain without contrast for any acute neurological decline Continue to monitor/control blood pressure & blood glucose Recommend continue to allow permissive HTN Treat SBP>220 Continue to monitor telemetry closely Recommend ZioPatch at DC if no evidence of arrhythmia during inpatient monitoring Continue to monitor renal and hepatic function, keep euvolemic Metabolic workup should include hgbA1c, fasting lipids, homocysteine, TSH, D Dimer, RPR, Urinalysis Recommend DAPT for at least 3 weeks Recommend high dose statin therapy indefinitely if tolerated Ok from neurology perspective for VTE prophylaxis PT/OT/SLT to eval and treat Recommend eval for YANCY and consider outpatient polysomnography Telehealth Consultation Telehealth Information Telehealth Information: I performed this visit using a real-time telehealth connection between my location and the patients location ([facility]). After connecting through interactive tele-video, patient was identified by name and date of and/or wristband check.Patient (or authorized healthcare administrative representative) was informed that this was a telemedicine visit and it was being conducted confidentially over secure lines. My office door was closed and no one else was present in the room with me.Patient (or authorized healthcare administrative representative) provided consent to proceed with the visit, expressed an understanding of privacy and security of the telemedicine visit, and gave permission to have a hospital administrative representative in the room in order to assist with the visit and to conduct portions of the visit, as needed. I informed the patient (or authorized healthcare administrative representative) that I reviewed their record and presented the opportunity for them to ask any questions regarding the visit today. The patient agreed to participate. History of Present Illness Reason for Consultation: Stroke Requesting Physician: Dr. Brown Attending Physician: Joycelyn Brown MD History of Present Illness 68yo male visiting from [place] to help family relocate presented with acute onset dysarthria. Was not considered an IV thrombolytic candidate due to timing of onset of symptoms being outside therapeutic timeframe for administration. He has a hx of HTN, hyperlipidemia but denies hx of stroke or NM. He has undergone emergent stroke imaging including CT brain without contrast, personally reviewed today, revealing no overt evidence of hemorrhage. CT angiographic studies of head and neck, also personally reviewed today, reveal no overt evidence of large vessel occlusion or significant/flow limiting stenosis. He has undergone an MRI brain revealing evidence of acute ischemic stroke left marlys. I have performed televideo consultation. He is alert & oriented; able to answer all questions appropriately, name objects on televideo monitor, repeat phrases and perform complex/embedded commands without deficit. Neurological exam reveals significant dysarthria, left hemiparesis, ataxia of LUE and LLE as well as report of left facial paresthesia. He is agreeable to continue dual antiplatelet and statin therapy. No reported cephalgia or cervicalgia. Denies chest pain/palpitations or shortness of breath. Appears in no apparent distress or discomfort. No reported changes in vision hearing dizziness syncope seizure like activity. Reports recent GI complaint of N/V. Reports recent medication addition of statin therapy. He is eagerly anticipating rehab and want to get back to [place]. He is thankful for the care he is receiving. Family at bedside all questions answered. Allergies Allergy/AdvReac Type Severity Reaction Status Date / Time No Known Allergies Allergy Verified 09/27/23 21:09 Home Medications Medication Instructions Recorded Confirmed Type allopurinol 100 mg tablet 100 mg PO QAM 09/27/23 09/27/23 History cholecalciferol (vitamin D3) 25 25 mcg PO DAILY 09/27/23 09/27/23 History mcg (1,000 unit) capsule (Vitamin D3) lisinopril 20 1 tab PO QAM 09/27/23 09/27/23 History mg-hydrochlorothiazide 12.5 mg tablet rosuvastatin 20 mg tablet 20 mg PO QAM 09/27/23 09/27/23 History Patient History Social History Smoking Status: Never smoker Hx Alcohol Use: Yes Alcohol type: beer Hx Substance Use: No Preferred Language: Iranian Communication Ability: Effective Director Business Systems Required: No Beliefs That Will Affect Care: None Current Living Situation: Spouse Current Living Situation Comment: Own home, 2 steps to enter house, first floor master bedroom Other Information That Helps Us Care for You: No Feels Safe at Home: Yes Safety Concerns: Feels Safe At This Time Assistive Devices: CPAP Physical Exam Neurological Examination: Mental Status: Awake and alert. Oriented to person, place, and time. Fluency naming repetition and comprehension appear grossly intact. Affect remains appropriate. There is overt dysarthria CN testing: I: Denies changes in ability to smell II:Reports no changes in visual acuity III/IV/: No evidence of gaze preference, hippus, nystagmus or roving eye movements V: Facial sensation reportedly decreased right side VII: Facial movements appear without evidence of asymmetry VIII: Hearing appears grossly intact to loud voice bilaterally IX/X: Palate appears to elevate symmetrically XI: Shoulder shrug appears symmetric/ grossly intact bilaterally XII: Tongue protrudes midline without evidence of biting Motor exam: Mild right hemiparesis Sensory: Paresthesia right face Coordination: RUE, RLE ataxia/dysmetria & dysdiadochokinesia Reflexes: Deferred Gait: Deferred Results & Data Vital Signs (Past 12 Hours) Vital Signs Temp Pulse Pulse Resp BP BP Pulse Ox 09/28/23 11:20 36.8 C 64 20 166/80 H 94 09/28/23 06:51 62 21 92 09/28/23 06:36 64 16 93 09/28/23 06:21 63 21 94 09/28/23 06:12 62 20 95 09/28/23 06:00 62 23 126/63 94 09/28/23 05:42 61 23 95 09/28/23 05:33 62 19 94 09/28/23 05:21 65 13 96 09/28/23 05:15 71 24 09/28/23 05:06 65 20 09/28/23 04:51 69 22 09/28/23 04:42 65 23 94 09/28/23 04:33 63 20 92 09/28/23 04:27 63 20 91 09/28/23 04:18 62 20 91 09/28/23 04:00 133/73 09/28/23 03:57 66 25 H 92 09/28/23 03:45 62 22 93 09/28/23 03:36 67 18 09/28/23 03:21 65 16 09/28/23 03:09 67 18 94 09/28/23 02:42 66 21 94 09/28/23 02:36 64 22 93 09/28/23 02:15 67 20 92 09/28/23 02:00 09/28/23 01:51 65 20 09/28/23 01:47 09/28/23 01:42 69 16 09/28/23 01:36 66 15 09/28/23 01:00 67 23 09/28/23 00:51 72 20 09/28/23 00:48 71 21 09/28/23 00:21 71 21 09/28/23 00:00 137/86 98 09/28/23 00:00 72 17 O2 Del Method 09/28/23 11:20 Room Air 09/28/23 06:51 09/28/23 06:36 09/28/23 06:21 09/28/23 06:12 09/28/23 06:00 09/28/23 05:42 09/28/23 05:33 09/28/23 05:21 09/28/23 05:15 09/28/23 05:06 09/28/23 04:51 09/28/23 04:42 09/28/23 04:33 09/28/23 04:27 09/28/23 04:18 09/28/23 04:00 09/28/23 03:57 09/28/23 03:45 09/28/23 03:36 09/28/23 03:21 09/28/23 03:09 09/28/23 02:42 09/28/23 02:36 09/28/23 02:15 09/28/23 02:00 Room Air 09/28/23 01:51 09/28/23 01:47 Room Air 09/28/23 01:42 09/28/23 01:36 09/28/23 01:00 09/28/23 00:51 09/28/23 00:48 09/28/23 00:21 09/28/23 00:00 09/28/23 00:00 Laboratory Results Abnormal lab results 09/27/23 09/27/23 09/27/23 Range/Units 19:25 19:49 21:00 RBC (4.70-6.10) M/uL Hgb (14.0-18.0) g/dl Hct (42.0-52.0) % Plt Count (130-400) K/uL Lymph # (Auto) 0.32 L (1.20-3.40) K/uL BUN 25 H (6-23) mg/dl BUN/Creatinine Ratio 30.9 H (10-20) Glucose 171 H (70-99(Fasting)) mg/dl POC Glucose 146 H (70-99) mg/dl Calcium (8.6-10.3) mg/dl Total Bilirubin 1.3 H (0.2-1.0) mg/dl Globulin 2.3 L (2.5-4.0) gm/dl Ur Specific Heath > 1.045 H (1.000-1.030) Urine Ketones 1+ H (Negative) 09/28/23 Range/Units 03:42 RBC 4.55 L (4.70-6.10) M/uL Hgb 13.4 L (14.0-18.0) g/dl Hct 38.5 L (42.0-52.0) % Plt Count 123 L (130-400) K/uL Lymph # (Auto) 0.38 L (1.20-3.40) K/uL BUN (6-23) mg/dl BUN/Creatinine Ratio 31.7 H (10-20) Glucose 114 H (70-99(Fasting)) mg/dl POC Glucose (70-99) mg/dl Calcium 7.9 L (8.6-10.3) mg/dl Total Bilirubin (0.2-1.0) mg/dl Globulin (2.5-4.0) gm/dl Ur Specific Heath (1.000-1.030) Urine Ketones (Negative) Diagnostic Findings Head CT 09/27/23 19:21 CT angio head w con, CT head/brain wo con, CT angio neck with con CLINICAL HISTORY: neuro deficit, acute stroke suspected TECHNIQUE: Contiguous axial CT images of the head were acquired from the base of the skull to the vertex without intravenous contrast administration. CT angiography of the head and neck was performed following intravenous administration of iodinated contrast. Coronal and sagittal MIPS were obtained from the axial data set and were submitted for review. Automated dose lowering techniques and/or adjustment according to patient size were utilized for this examination. All measurements were calculated based on NASCET criteria. CT DOSE: 1292.42 mGy.cm Comparison: None available at the time of this dictation. FINDINGS: CT head: There is no acute intracranial hemorrhage or evidence of acute territorial infarction. No shift of the midline structures, mass effect, or extra-axial abnormalities are shown. Lungs and soft tissues are unremarkable. CTA Neck: A 3 vessel aortic arch is shown. There is no significant atherosclerotic plaque in the aortic arch or the origins of the innominate, left common carotid, and left subclavian arteries. The common carotid, external carotid, cervical segments of the internal carotid arteries, and the cervical segments of the vertebral arteries are patent without hemodynamically significant stenosis. The vertebral arteries are codominant. CTA Head: The anterior and posterior cerebral circulations are patent. origin of the left posterior cerebral artery is seen. IMPRESSION: 1. No acute intracranial hemorrhage, evidence of acute territorial infarction, or other acute intracranial disease process. 2. No occlusion, hemodynamically significant stenosis, or dissection in the major cervical arteries. 3. No occlusion, hemodynamically significant stenosis, aneurysm, dissection, or arteriovenous malformation in the major intracranial arteries. Assessment of stenosis of the internal carotid arteries is based on NASCET criteria. ACT 112: Negative or not required by law. Electronically signed by: Lonnie Cat M.D. 09/27/2023 8:28 PM Head CTA 09/27/23 19:21 CT angio head w con, CT head/brain wo con, CT angio neck with con CLINICAL HISTORY: neuro deficit, acute stroke suspected TECHNIQUE: Contiguous axial CT images of the head were acquired from the base of the skull to the vertex without intravenous contrast administration. CT angiography of the head and neck was performed following intravenous administration of iodinated contrast. Coronal and sagittal MIPS were obtained from the axial data set and were submitted for review. Automated dose lowering techniques and/or adjustment according to patient size were utilized for this examination. All measurements were calculated based on NASCET criteria. CT DOSE: 1292.42 mGy.cm Comparison: None available at the time of this dictation. FINDINGS: CT head: There is no acute intracranial hemorrhage or evidence of acute territorial infarction. No shift of the midline structures, mass effect, or extra-axial abnormalities are shown. Lungs and soft tissues are unremarkable. CTA Neck: A 3 vessel aortic arch is shown. There is no significant atherosclerotic plaque in the aortic arch or the origins of the innominate, left common carotid, and left subclavian arteries. The common carotid, external carotid, cervical segments of the internal carotid arteries, and the cervical segments of the vertebral arteries are patent without hemodynamically significant stenosis. The vertebral arteries are codominant. CTA Head: The anterior and posterior cerebral circulations are patent. origin of the left posterior cerebral artery is seen. IMPRESSION: 1. No acute intracranial hemorrhage, evidence of acute territorial infarction, or other acute intracranial disease process. 2. No occlusion, hemodynamically significant stenosis, or dissection in the major cervical arteries. 3. No occlusion, hemodynamically significant stenosis, aneurysm, dissection, or arteriovenous malformation in the major intracranial arteries. Assessment of stenosis of the internal carotid arteries is based on NASCET c vangie. ACT 112: Negative or not required by law. Electronically signed by: Lonnie Cat M.D. 09/27/2023 8:28 PM Neck CTA 09/27/23 19:21 CT angio head w con, CT head/brain wo con, CT angio neck with con CLINICAL HISTORY: neuro deficit, acute stroke suspected TECHNIQUE: Contiguous axial CT images of the head were acquired from the base of the skull to the vertex without intravenous contrast administration. CT angiography of the head and neck was performed following intravenous administration of iodinated contrast. Coronal and sagittal MIPS were obtained from the axial data set and were submitted for review. Automated dose lowering techniques and/or adjustment according to patient size were utilized for this examination. All measurements were calculated based on NASCET criteria. CT DOSE: 1292.42 mGy.cm Comparison: None available at the time of this dictation. FINDINGS: CT head: There is no acute intracranial hemorrhage or evidence of acute territorial infarction. No shift of the midline structures, mass effect, or extra-axial abnormalities are shown. Lungs and soft tissues are unremarkable. CTA Neck: A 3 vessel aortic arch is shown. There is no significant atherosclerotic plaque in the aortic arch or the origins of the innominate, left common carotid, and left subclavian arteries. The common carotid, external carotid, cervical segments of the internal carotid arteries, and the cervical segments of the vertebral arteries are patent without hemodynamically significant stenosis. The vertebral arteries are codominant. CTA Head: The anterior and posterior cerebral circulations are patent. origin of the left posterior cerebral artery is seen. IMPRESSION: 1. No acute intracranial hemorrhage, evidence of acute territorial infarction, or other acute intracranial disease process. 2. No occlusion, hemodynamically significant stenosis, or dissection in the major cervical arteries. 3. No occlusion, hemodynamically significant stenosis, aneurysm, dissection, or arteriovenous malformation in the major intracranial arteries. Assessment of stenosis of the internal carotid arteries is based on NASCET cr rafaelia. ACT 112: Negative or not required by law. Electronically signed by: Lonnie Cat M.D. 09/27/2023 8:28 PM Brain MRI 09/27/23 21:36 CR Exam(s): MRI HEAD Without Contrast EXAM: MR Head Without Intravenous Contrast CLINICAL HISTORY: Reason for exam: slurred speech; RUE deficits. TECHNIQUE: Magnetic resonance images of the head/brain without intravenous contrast in multiple planes. COMPARISON: Comparison made to prior head CT from September 27, 2023. FINDINGS: Brain: There is acute ischemic injury of the left marlys with moderate to severe toxic edema without evidence of hemorrhagic transformation. Mild nonspecific white matter changes. No mass. No hemorrhage. The flow voids at the base of the brain are intact. Ventricles: Mild ventriculomegaly. Bones/joints: Unremarkable. No acute fracture. Sinuses: Unremarkable as visualized. No acute sinusitis. Mastoid air cells: Unremarkable as visualized. No mastoid effusion. Orbits: Unremarkable as visualized. IMPRESSION: Acute ischemic injury within the left marlys without evidence of hemorrhagic transformation. Communications: Verify Receipt Electronically signed by: Smita Huitron MD 09/27/23 23:12 PM Medications Administered Home Medications Medication Instructions Recorded Confirmed Last Taken allopurinol 100 mg tablet 100 mg PO QAM 09/27/23 09/27/23 09/27/23 cholecalciferol (vitamin D3) 25 25 mcg PO DAILY 09/27/23 09/27/23 09/27/23 mcg (1,000 unit) capsule (Vitamin D3) lisinopril 20 1 tab PO QAM 09/27/23 09/27/23 09/27/23 mg-hydrochlorothiazide 12.5 mg tablet rosuvastatin 20 mg tablet 20 mg PO QAM 09/27/23 09/27/23 09/27/23 Active Medications Generic Name Dose Route Start Last Admin Trade Name Freq PRN Reason Stop Dose Admin Allopurinol 100 mg 09/28/23 09:00 09/28/23 09:09 Allopurinol 100 Mg Tab PO 10/28/23 08:59 100 mg QAM KIMBERLEY Administration Aspirin 81 mg 09/28/23 09:00 09/28/23 09:09 Aspirin 81 Mg Ectab PO 10/28/23 08:59 81 mg QAM KIMBERLEY Administration Enoxaparin Sodium 40 mg 09/28/23 09:00 09/28/23 09:12 Enoxaparin Inj 40 Mg/0.4 Ml Syr SQ 10/28/23 08:59 40 mg QAM KIMBERLEY Administration Potassium Chloride/Sodium Chloride 20 meq in 1,000 mls @ 60 mls/hr 09/27/23 22:24 09/27/23 23:24 Normal Saline W/20 Meq Kcl IV 09/28/23 15:03 60 mls/hr .[id number] ONE Administration Protocol Rosuvastatin Calcium 40 mg 09/28/23 09:00 09/28/23 09:10 Rosuvastatin Calcium 20 Mg Tab PO 10/28/23 08:59 40 mg QAM KIMBERLEY Administration Vitamin D 25 mcg 09/28/23 09:00 09/28/23 09:09 Cholecalciferol 25 Mcg (1000 Units) Tab PO 10/28/23 08:59 25 mcg DAILY KIMBERLEY Administration
--- NOTE | 2023-09-28 14:16 | Pharmacy Report ---
- Date of Service September 28, 2023 - Pharmacy CVA/TIA Medication Review Medications to Prevent Stroke handout has been added to the patients discharge packet. Antiplatelet(s) * Aspirin 81 mg PO daily + clopidogrel 75 mg PO daily x at least 3 weeks Cholesterol * High intensity statin: rosuvastatin 40 mg daily DVT Prophylaxis * Enoxaparin SQ Therapeutic Anticoagulation * No history of Afib/Aflutter noted Type 2 Diabetes * Patient does not have T2DM
--- NOTE | 2023-09-28 14:54 | Hospitalist Progress Note ---
Date of Service September 28, 2023 Assessment & Plan (1) Acute CVA (cerebrovascular accident): Plan: Acute ischemic CVA Head CT was unremarkable. CT angio head and neck did not show any occlusion, hemodynamically significant stenosis or dissection. Brain MRI showed acute ischemic injury within the left marlys without evidence of hemorrhagic transformation. Patient has acute CVA. Brain MRI corresponds to neurological deficits. Neurology evaluation noted. Neurology recommends dual antiplatelet for at least 3 weeks, high intensity statin indefinitely. Hemoglobin A1c normal at 5 and lipid panel reviewed. TSH is normal at 1.96. Homocystine and RPR pending. Continue permissive hypertension. Treat SBP more than 220 Continue to hold home lisinoprilhydrochlorothiazide for now TTE Noted EF of 55 to 60%, mild tricuspid regurgitation, estimated PASP of 35- 39, aortic root and proximal ascending aorta are mildly dilated. PT/OT/CIRCULAR SAW FILER evaluation noted. Acute rehab recommended. and patient noted that they are from [facility] and was visiting family in the area. They are requesting possibly discharge to [facility] in [place]. program management manager notified and looking into this Patient will need to follow-up with neurology, PCP. Will also need Zio patch outpatient which his PCP can help arrange DVT ppx - Lovenox sq I spent a total of 55 minutes coordinating, documenting and providing care for this patient excluding time spent in performance of separately billed services Admission and Anticipated Discharge Date Admission Date: September 27, 2023 Subjective Patient seen and examined Reports right sided weakness Reports unsteady gait Speech is not back to normal per Reports nausea, vomiting, diarrhea are resolved Denied other complaints Physical Exam Constitutional: + well hydrated; no acute distress Eyes: PERRL, conjunctivae normal, anicteric sclerae ENMT: external ear and nose normal, oropharynx normal Respiratory: normal respiratory effort, lungs clear to auscultation Cardiovascular: Rate/Rhythm: regular rate and regular rhythm Gastrointestinal (Abdomen): normal bowel sounds, soft, nontender, no hepatosplenomegaly Musculoskeletal: No pedal edema Neurologic: PERRL, EOMI +dysarthria Mild right hemiparesis Psychiatric: A+Ox3, euthymic affect Results & Data Results & Data Vital Signs (Past 12 Hours) Vital Signs Temp Pulse Pulse Resp BP BP Pulse Ox 09/28/23 12:00 67 09/28/23 11:20 36.8 C 64 20 166/80 H 94 09/28/23 06:51 62 21 92 09/28/23 06:36 64 16 93 09/28/23 06:21 63 21 94 09/28/23 06:12 62 20 95 09/28/23 06:00 62 23 126/63 94 09/28/23 05:42 61 23 95 09/28/23 05:33 62 19 94 09/28/23 05:21 65 13 96 09/28/23 05:15 71 24 09/28/23 05:06 65 20 09/28/23 04:51 69 22 09/28/23 04:42 65 23 94 09/28/23 04:33 63 20 92 09/28/23 04:27 63 20 91 09/28/23 04:18 62 20 91 09/28/23 04:00 133/73 09/28/23 03:57 66 25 H 92 09/28/23 03:45 62 22 93 09/28/23 03:36 67 18 09/28/23 03:21 65 16 09/28/23 03:09 67 18 94 O2 Del Method 09/28/23 12:00 09/28/23 11:20 Room Air 09/28/23 06:51 09/28/23 06:36 09/28/23 06:21 09/28/23 06:12 09/28/23 06:00 09/28/23 05:42 09/28/23 05:33 09/28/23 05:21 09/28/23 05:15 09/28/23 05:06 09/28/23 04:51 09/28/23 04:42 09/28/23 04:33 09/28/23 04:27 09/28/23 04:18 09/28/23 04:00 09/28/23 03:57 09/28/23 03:45 09/28/23 03:36 09/28/23 03:21 09/28/23 03:09 Laboratory Results Abnormal lab results 09/27/23 09/27/23 09/27/23 Range/Units 19:25 19:49 21:00 RBC (4.70-6.10) M/uL Hgb (14.0-18.0) g/dl Hct (42.0-52.0) % Plt Count (130-400) K/uL Lymph # (Auto) 0.32 L (1.20-3.40) K/uL BUN 25 H (6-23) mg/dl BUN/Creatinine Ratio 30.9 H (10-20) Glucose 171 H (70-99(Fasting)) mg/dl POC Glucose 146 H (70-99) mg/dl Calcium (8.6-10.3) mg/dl Total Bilirubin 1.3 H (0.2-1.0) mg/dl Globulin 2.3 L (2.5-4.0) gm/dl Ur Specific [place] > 1.045 H (1.000-1.030) Urine Ketones 1+ H (Negative) 09/28/23 Range/Units 03:42 RBC 4.55 L (4.70-6.10) M/uL Hgb 13.4 L (14.0-18.0) g/dl Hct 38.5 L (42.0-52.0) % Plt Count 123 L (130-400) K/uL Lymph # (Auto) 0.38 L (1.20-3.40) K/uL BUN (6-23) mg/dl BUN/Creatinine Ratio 31.7 H (10-20) Glucose 114 H (70-99(Fasting)) mg/dl POC Glucose (70-99) mg/dl Calcium 7.9 L (8.6-10.3) mg/dl Total Bilirubin (0.2-1.0) mg/dl Globulin (2.5-4.0) gm/dl Ur Specific [place] (1.000-1.030) Urine Ketones (Negative)
[2023-09-28] MEDS: ACETAMINOPHEN 325 MG TAB PO PRN (16:06)
[2023-09-29 02:52] VITALS: O2SAT 95
[2023-09-29 06:01] LABS: Basophils # (auto) 0.01 K/uL (0.00-0.20); Basophils % (auto) 0.2 %; Eosinophils % (auto) 2.2 %; Hematocrit (blood only) 39.2 % (42.0-52.0); Hemoglobin 13.5 g/dl (14.0-18.0); Immature Granulocytes # (auto) 0.02 K/uL (0.01-0.20); Immature Granulocytes % (auto) 0.4 %; Lymphocytes # (auto) 0.64 K/uL (1.20-3.40); Mean Corpuscular Hemoglobin 29.3 pg (25.0-34.0); Mean Corpuscular Hgb Conc 34.4 g/dL (32.0-36.0); Mean Corpuscular Volume 85.2 fL (80.0-100.0); Mean Platelet Volume 10.7 fL (9.4-12.4); Monocytes # (auto) 0.65 K/uL (0.11-0.59); Monocytes % (auto) 14.3 %; Neutrophils # (auto) 3.14 K/uL (1.40-6.50); Neutrophils % (auto) 68.9 %; Platelet Count 120 K/uL (130-400); RDW Coefficient of Variation 13.2 % (11.5-14.5); RDW Standard Deviation 40.6 fL (36.4-46.3); White Blood Count 4.56 K/ul (4.8-10.8)
[2023-09-29 06:19] LABS: BUN Creatinine Ratio 23.2 (10-20); Calcium 8.5 mg/dl (8.6-10.3); Creatinine Clr Calc Pharmacy 102.6 ml/min; Est GFR (African American) 105.3 ml/min; Est GFR (Non-African American) 90.9 ml/min; Potassium 3.8 mmol/L (3.5-5.1)
[2023-09-29 08:02] VITALS: PULSE 62; RESP 18; TEMP 98.8
[2023-09-29] MEDS: CLOPIDOGREL BISULFATE 75 MG TAB PO SCH (08:12)
[2023-09-29] MEDS ORDERED: STROKE PATIENT DISCHARGE STA (10:26)
--- NOTE | 2023-09-29 10:28 | Discharge Summary ---
Date of Service September 29, 2023 Admission HPI Per Admitting Provider History obtained from patient, family, and records. Patient is a resident of [place], [place] who arrived in [facility] last week to help family relocate. Medical history significant for hypertension, hyperlipidemia, gout. Patient and contracted transient diarrheal illness associated with nausea, vomiting symptoms upon arrival last weekend. Sick family members. Symptoms currently improving. This morning, patient noted by to have garbled speech and not talking as allowed. Patient felt dizzy and imbalanced while walking. No headache symptoms. No chest pain, no SOB. No arm or leg weakness. No previous episodes. Patient given aspirin upon arrival at the ER. Symptoms currently improving. 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 Admission Exam Per Admitting Provider GENERAL: Comfortable, pleasant, dysarthric, no respiratory distress SKIN: Normal color, warm HEENT: [place] palpebral conjunctivae, no ptosis, dry buccal mucosa NECK : Supple, no tenderness CHEST : CTA, no tenderness HEART : RRR, no obvious murmurs ABDOMEN: Some distention, nontender EXTREMITIES : No LE swelling/tenderness, no other conspicuous deformities noted NEUROLOGIC : Coherent, no facial asymmetry, dysarthric, MMTs BUE/BLE 5/5 Principal Diagnosis Cerebrovascular Accident Discharge Exam Constitutional + well hydrated; no acute distress Eyes PERRL, conjunctivae normal, anicteric sclerae ENMT external ear and nose normal, oropharynx normal Respiratory normal respiratory effort, lungs clear to auscultation Cardiovascular Rate/Rhythm: regular rate and regular rhythm S1 S2 Gastrointestinal (Abdomen) normal bowel sounds, soft, nontender, no hepatosplenomegaly Musculoskeletal No pedal edema Neurologic PERRL, EOMI +dysarthria Mild right hemiparesis Psychiatric A+Ox3, euthymic affect Discharge Data Allergies Allergy/AdvReac Type Severity Reaction Status Date / Time No Known Allergies Allergy Verified 09/27/23 21:09 Consultations 09/27/23 21:37 ED Decision to Admit Stat 09/27/23 23:17 Consult Neurology Routine Ordered Studies 09/27/23 19:21 CT angio head w con Stat CT angio neck with con Stat CT head/brain wo con Stat 09/27/23 21:36 MRI Brain [MR brain wo con] Stat Hospital Course (1) Acute CVA (cerebrovascular accident): Acute ischemic CVA Head CT was unremarkable. CT angio head and neck did not show any occlusion, hemodynamically significant stenosis or dissection. Brain MRI showed acute ischemic injury within the left marlys without evidence of hemorrhagic transformation. Patient has acute CVA. Brain MRI corresponds to neurological deficits. Neurology evaluation noted. Neurology recommends dual antiplatelet for at least 3 weeks, high intensity stat in indefinitely. Hemoglobin A1c normal at 5 and lipid panel reviewed. TSH is normal at 1.96. Homocystine and RPR pending. Permissive hypertension was done initially Resume home lisinoprilhydrochlorothiazide TTE Noted EF of 55 to 60%, mild tricuspid regurgitation, estimated PASP of 35- 39, aortic root and proximal ascending aorta are mildly dilated. PT/OT/INSPECTOR BICYCLE evaluated Acute rehab recommended. and patient noted that they are from [facility] and was visiting family in the area. They are requesting possibly discharge to [facility] in [place]. restaurant assistant manager was able to get patient accepted to [facility] in [facility] and they request patient arrive before 7pm stated she will drive patient from here to facility which is [address] Patient will need to follow-up with neurology, PCP. Will also need Zio patch outpatient which his PCP can help arrange Patient discharged to [facility] in [facility] Total Time Total Time Spent Total Time Spent (In Minutes): 35 Total Time Includes: Examination of the Patient, Discharge Planning and Medica tion Reconciliation Discharge Plan Discharge Items Patient Disposition: Transfer Inpatient Rehab Fac Reason For Visit: Right sided weakness and abnormal speech Discharge Diagnosis: Cerebrovascular Accident (Stroke) Activity: As commented below Activity Comment: Per Physical therapist /Occupational therapist recommendations Non-emergency contact: Primary Care Provider and Neurologist Call non-emergency contact if: you have any medication questions and your symptoms worsen Follow-up/Referrals: PCP,NO [Primary Care Provider] - Diet: Heart Healthy Addtl Attending Provider Instructions: Mr Gonzalez You came to the hospital with dizziness and garbled speech. You were evaluated and found to have a stroke in Left Marlys. You were evaluated by Neurologist. You are currently on dual antiplatelet therapy for at least 3 weeks and then aspirin only afterwards or as directed by Neurology Please continue rosuvastatin. Please ensure follow up with Neurology within 4 weeks You will need Zio patch testing. You are being discharged to [facility] in [place] for continued Physical/Occupational/Speech therapies It was a pleasure taking care of you. Pending Studies at Discharge: No Stand-Alone Forms: My [facility] [employer], Medications to Prevent Stroke Skilled Items Patient informed of condition?: Yes DNR: No Discharge Level of Care: Acute rehab Communicable Disease: No Discharge Prognosis: Stable Lines: None Urinary Catheter: No Medications and DC Order Prescriptions: New clopidogrel 75 mg Tablet 75 mg PO QAM 21 Days Qty: 21 0RF aspirin 81 mg Tablet,Delayed Release (Dr/Ec) 81 mg PO QAM 30 Days Qty: 30 0RF Continued lisinopril-hydrochlorothiazide 20-12.5 mg tablet 1 tab PO QAM allopurinol 100 mg tablet 100 mg PO QAM cholecalciferol (vitamin D3) [Vitamin D3] 25 mcg (1,000 unit) Capsule 25 mcg PO DAILY rosuvastatin 20 mg tablet 20 mg PO QAM Discharge Orders: Discharge Order (Routine); Ordered 09/29/23 Ordered By: Joycelyn Brown Admission Data Admit Date/Time: 09/27/23 23:17 Attending Provider: Joycelyn Brown I. Admit Provider: Cali Guevara Primary Care Provider: PCP,NO Other Providers: Cali Guevara; Margie Connolly; Familia Rutherford; Margie Newby; Mingo Clemons; Kory Duque; Clarence Seals; Jerrod Bronson; Dixie Sarmiento; Carlito Sanches; Ashok Oconnell; Homer Torres; Esdras Do; Abena Gonzalez; Candi Wilhelm; Jerrod Terry
[2023-09-29 11:03] VITALS: BP 164/78
--- NOTE | 2023-09-30 06:22 | Electrocardiogram Report ---
Test Reason : Blood Pressure : / mmHG Vent. Rate : 086 BPM Atrial Rate : 086 BPM P-R Int : 192 ms QRS Dur : 100 ms QT Int : 368 ms P-R-T Axes : 056 018 036 degrees QTc Int : 440 ms Normal sinus rhythm Septal infarct , age undetermined Abnormal ECG No previous ECGs available Confirmed by Toño Dorsey ([id number]) on 09/30/2023 6:22:40 AM Referred By: REFERRED SELF Confirmed By:Toño Dorsey
[2023-09-30] MEDS ORDERED: ROSUVASTATIN CALCIUM 10 MG TAB PO SCH (09:00)
[2023-10-01] MEDS ORDERED: ROSUVASTATIN CALCIUM 10 MG TAB PO SCH (09:00)
== END 2023-09-29 11:44 | DRG 65 ==
LOC: ED 18:59 → EDINP 18:59 → 2W 09-28 11:22
DX: Z79.899 Other long term (current) drug therapy; I63.89 Other cerebral infarction; I10 Essential (primary) hypertension; G81.91 Hemiplegia, unspecified affecting right dominant side; E78.5 Hyperlipidemia, unspecified; R73.9 Hyperglycemia, unspecified